=== PATIENT | female | born 1955 | race Caucasian/White ===

== ENCOUNTER 2017-01-13 09:17 | Emergency (ER) | payer MEDICARE, MEDICAID | END 2017-01-13 09:42 | disposition left against medical advice (07) | LOC: UCCORT 09:17 | DX: R19.7 Diarrhea, unspecified (principal); Z53.21 Procedure and treatment not carried out due to patient leaving prior to being seen by health care provider ==

== ENCOUNTER 2017-01-14 11:32 | Emergency (ER) | payer MEDICAID, MEDICARE, OTHER ==
--- NOTE | 2017-01-14 11:38 | UC ---
Abdominal Pain Male HPI - HPI Summary HPI Summary: 61 YEAR OLD FEMALE PRESENTS WITH COMPLAINS OF DIARRHEA X 1 MONTH. - History of Current Complaint Stated Complaint: DIARRHEA Time Seen by Provider: 01/14/17 11:37 Hx Obtained From: Patient Onset/Duration: Lasting Weeks Severity Initially: Moderate Severity Currently: Moderate Pain Scale Used: 0-10 Numeric - 5 Location: Diffuse - Allergies/Home Medications Allergies/Adverse Reactions: Allergies Allergy/AdvReac Type Severity Reaction Status Date / Time [place] Allergy Hallucinati Verified 01/14/17 11:43 ons Home Medications: Home Medications Sertraline* [Zoloft*] 200 mg PO DAILY 01/14/17 [History Confirmed 01/14/17] lamoTRIgine TAB(*) [Lamictal TAB(*)] 200 mg PO BID 01/14/17 [History Confirmed 01/14/17] risperiDONE TAB* [Risperdal*] 1 mg PO DAILY 01/14/17 [History Confirmed 01/14/17 ] PMH/Surg Hx/FS Hx/Imm Hx Previously Healthy: Yes Review of Systems Constitutional: Negative Skin: Negative Eyes: Negative ENT: Negative Respiratory: Negative Cardiovascular: Negative Gastrointestinal: Diarrhea Genitourinary: Negative Motor: Negative Neurovascular: Negative Musculoskeletal: Negative Neurological: Negative Psychological: Negative All Other Systems Reviewed And Are Negative: Yes Physical Exam Triage Information Reviewed: Yes Eye Exam: Normal ENT Exam: Normal Dental Exam: Normal Neck exam: Normal Neck: Positive: 1 Respiratory Exam: Normal Cardiovascular Exam: Normal Abdominal Exam: Normal Musculoskeletal Exam: Normal Neurological Exam: Normal Psychological Exam: Normal Skin Exam: Normal Abd Pain Male Course/Dx - Differential Dx/Clinical Impression Provider Diagnoses: DIARRHEA Discharge - Discharge Plan Condition: Stable Disposition: HOME Prescriptions: Loperamide HCl [Imodium A-D] 2 mg PO SEE INSTRUCTIONS #1 box Referrals: Kathleen Willams MD [Medical Doctor] - Salvatore Cross MD [Medical Doctor] -
[2017-01-14 11:43] VITALS: BP 103/69
== END 2017-01-14 12:00 | disposition home or self-care (01) ==
LOC: UCCORT 11:32
DX: R19.7 Diarrhea, unspecified (principal)
CPT/HCPCS: 99212; G0463